=== PATIENT | female | born 1955 | race Caucasian/White ===

== ENCOUNTER 2016-05-10 11:30 | Outpatient (RCR) | payer BC ==
[~2016-05-10 11:30] MED LIST: ASPIR-LOX325 MG PO; CITALOPRAM20 MG PO; LORTAB 5/500 501 TAB PO; MECLIZINE25 MG PO; NEURONTIN300 MG PO; NEURONTIN300 MG/CAP PO; NORCO 325 MG-51 TAB PO; PEPCID 20MG TAB20 MG PO; PROTONIX40 MG PO; TOPROL XL50 MG PO
== END 2016-06-03 12:06 | disposition home or self-care (01) ==
LOC: WSPT 11:30
DX: M54.6 Pain in thoracic spine (principal); M54.5 Low back pain; M40.46 Postural lordosis, lumbar region; M40.294 Other kyphosis, thoracic region

== ENCOUNTER 2017-01-27 10:47 | Observation (INO) | payer BC ==
[~2017-01-27] VITALS: Ht 165.1 cm; Wt 62.8 kg
[2017-01-27 13:28] LABS: ADJUSTED CALCIUM 9.5 mg/dL (8.4-10.2); ALANINE AMINOTRANSFERASE 27 U/L (9-52); ALBUMIN 4.2 gm/dL (3.5-5.0); ALKALINE PHOSPHATASE 125 U/L (50-136); ANION GAP 10 mmol/L (7-16); BILIRUBIN,TOTAL 0.6 mg/dL (0.0-1.0); BLOOD UREA NITROGEN 5 mg/dL (7-17); CALCIUM 9.7 mg/dL (8.4-10.2); CARBON DIOXIDE 27 mmol/L (22-30); CHLORIDE 103 mmol/L (98-107); CREATININE, serum 0.68 mg/dL (0.52-1.25); GLUCOSE 82 mg/dL (74-106); LIPASE 42 U/L (23-300); POTASSIUM 4.2 mmol/L (3.4-5.0); SODIUM 140 mmol/L (137-145); TOTAL PROTEIN 7.8 gm/dL (6.4-8.2)
[2017-01-27 13:36] LABS: B-TYPE NATRIURETIC PEPTIDE 294 pg/mL (0-125)
[2017-01-27 13:45] LABS: TROPONIN-I < 0.012 ng/mL (0.000-0.034)
[2017-01-27 13:51] LABS: PROTHROMBIN TIME 10.9 SECONDS (9.7-12.8)
[2017-01-27 13:52] LABS: BASO % 0.8 % (0.0-2.0); EOS # 0.1 (0.0-0.7); EOS % 1.5 % (0-4.0); GRAN # 2.2 (1.4-6.5); GRAN % 46.9 % (42.2-75.2); HEMATOCRIT 49.1 % (37.0-47.0); LYMPH # 2.1 (1.2-3.4); LYMPH % 43.1 % (20.0-51.0); MEAN CELL VOLUME 96 fl (80.0-100.0); MEAN CORPUSCULAR HEMOGLOBIN 31 pg (27.0-31.0); MEAN CORPUSCULAR HGB CONC 33 g/dl (33.0-37.0); MONO # 0.4 (0.1-0.6); MONO % 7.3 % (1.7-9.3); PLATELET COUNT 270 K/mm3 (130-400); RED BLOOD COUNT 5.14 M/mm3 (4.10-5.30); WHITE BLOOD COUNT 4.8 K/mm3 (4.8-10.8)
[2017-01-27 13:54] LABS: PARTIAL THROMBOPLASTIN TIME 30.9 SECONDS (26.0-37.0)
[2017-01-27] MEDS ORDERED: ASPIRIN 32325 MG/TAB PO (15:40)
[2017-01-27 20:30] VITALS: BP 139/72; PULSE 76; TEMP 97.8
[2017-01-27 23:34] VITALS: BP 129/70; PULSE 84; TEMP 98.1
[2017-01-28] VITALS (13 sets, daily range): BP systolic 105–164; BP diastolic 67–91; PULSE 64–82; TEMP 97.8–98.5
[2017-01-28 08:47] LABS: BASO % 0.8 % (0.0-2.0); EOS # 0.1 (0.0-0.7); EOS % 1.3 % (0-4.0); GRAN # 2.3 (1.4-6.5); GRAN % 43.6 % (42.2-75.2); HEMATOCRIT 48.5 % (37.0-47.0); HEMOGLOBIN 15.8 g/dl (12.5-16.0); LYMPH # 2.5 (1.2-3.4); MEAN CELL VOLUME 95 fl (80.0-100.0); MEAN CORPUSCULAR HEMOGLOBIN 31 pg (27.0-31.0); MEAN CORPUSCULAR HGB CONC 33 g/dl (33.0-37.0); MEAN PLATELET VOLUME 10.2 fl (7.4-10.4); MONO # 0.4 (0.1-0.6); MONO % 8.1 % (1.7-9.3); PLATELET COUNT 258 K/mm3 (130-400); REDCELL DISTRIBUTION WIDTH-CV 12.9 % (11.5-14.5); WHITE BLOOD COUNT 5.3 K/mm3 (4.8-10.8)
[2017-01-28 09:08] LABS: PROTHROMBIN TIME 11.5 SECONDS (9.7-12.8)
[2017-01-28 09:11] LABS: PARTIAL THROMBOPLASTIN TIME 33.7 SECONDS (26.0-37.0)
[2017-01-28 09:23] LABS: ANION GAP 9 mmol/L (7-16); BLOOD UREA NITROGEN 6 mg/dL (7-17); CALCIUM 9.6 mg/dL (8.4-10.2); CARBON DIOXIDE 25 mmol/L (22-30); CHLORIDE 105 mmol/L (98-107); CHOLESTEROL 290 mg/dL (120-200); CREATININE, serum 0.63 mg/dL (0.52-1.25); GLUCOSE 78 mg/dL (74-106); HDL CHOLESTEROL 35 mg/dL; LDL CHOLESTEROL 213 mg/dL; POTASSIUM 3.8 mmol/L (3.4-5.0); SODIUM 139 mmol/L (137-145); TRIGLYCERIDE 211 mg/dL
[2017-01-28 09:32] LABS: TROPONIN-I < 0.012 ng/mL (0.000-0.034)
[2017-01-28 10:32] LABS: MAGNESIUM 2.3 mg/dL (1.6-2.3)
[2017-01-28 11:04] LABS: FERRITIN 60 ng/mL (11-264)
[2017-01-28] MEDS ORDERED: LIPITOR 80MG80 MG PO (15:32)
[2017-01-28] MEDS ORDERED: TOPROL XL 50MG50 MG PO (15:33)
[2017-01-28] MEDS ORDERED: CELEXA 20MG20 MG/TAB PO (15:35)
[2017-01-28] MEDS ORDERED: ASPIRIN 32325 MG/TAB PO (15:35)
[2017-01-29 14:07] LABS: ALBUMIN FRACTION 3.7 g/dL (2.6-4.5); ALBUMIN PERCENTAGE 55.2 % (48.7-61.8); ALPHA 1 FRACTION 0.3 g/dL (0.3-0.5); ALPHA 1 PERCENTAGE 4.7 % (3.4-8.3); ALPHA 2 FRACTION 0.9 g/dL (0.6-1.2); BETA 1 FRACTION 0.5 g/dL (0.4-0.6); BETA 2 FRACTION 0.5 g/dL (0.2-0.5); BETA 2 PERCENTAGE 6.8 % (3.8-7.7); GAMMA FRACTION 0.8 g/dL (0.4-1.7); GAMMA PERCENTAGE 12.3 % (8.1-23.0); SERUM PROTEIN TOTAL 6.7 g/dL (6.0-7.6)
== END 2017-01-28 16:26 | disposition home or self-care (01) ==
LOC: COL.ER 10:47 → MEDICAL 14:29
PROVIDERS: Emergency Medicine; Internal Medicine Interventional Cardiology; Psychiatry & Neurology Neurology
DX: I25.110 Atherosclerotic heart disease of native coronary artery with unstable angina pectoris (principal); R07.9 Chest pain, unspecified; E78.5 Hyperlipidemia, unspecified; I10 Essential (primary) hypertension; J44.9 Chronic obstructive pulmonary disease, unspecified; M48.02 Spinal stenosis, cervical region; R01.1 Cardiac murmur, unspecified; G95.9 Disease of spinal cord, unspecified; G62.9 Polyneuropathy, unspecified; Z87.891 Personal history of nicotine dependence; M51.24 Other intervertebral disc displacement, thoracic region; Z90.710 Acquired absence of both cervix and uterus
CPT/HCPCS: A9585; C1760; C1894; G0378; J1650; J2250; J3010; Q9967

== ENCOUNTER → 2017-03-17 | Outpatient (CLI) | payer BC ==
[~2017-03-17] MED LIST changes: +ASPIRIN 32325 MG/TAB PO; +CELEXA 20MG20 MG/TAB PO; +LIPITOR 80MG80 MG PO; +TOPROL XL 50MG50 MG PO
== END ==
LOC: COL.RAD 07:48
DX: I71.4 Abdominal aortic aneurysm, without rupture (principal); I21.9 Acute myocardial infarction, unspecified; I70.0 Atherosclerosis of aorta; J43.9 Emphysema, unspecified
CPT/HCPCS: A9537; J7050; Q9967

== ENCOUNTER → 2017-12-08 | Outpatient (CLI) | payer BC | LOC: COL.RAD 07:30 | DX: I70.213 Atherosclerosis of native arteries of extremities with intermittent claudication, bilateral legs (principal); I71.4 Abdominal aortic aneurysm, without rupture; I70.0 Atherosclerosis of aorta; I77.4 Celiac artery compression syndrome; K55.1 Chronic vascular disorders of intestine; M48.02 Spinal stenosis, cervical region; M54.12 Radiculopathy, cervical region; Z95.828 Presence of other vascular implants and grafts; Z98.1 Arthrodesis status | CPT/HCPCS: A9585; Q9967 ==

== ENCOUNTER → 2018-05-19 | Outpatient (CLI) | payer BC | LOC: MC.RAD 15:09 | DX: Z12.31 Encounter for screening mammogram for malignant neoplasm of breast (principal) ==

== ENCOUNTER 2018-06-18 18:55 | Emergency (ER) | payer BC ==
[~2018-06-18] VITALS: Ht 160 cm; Wt 64.5 kg
[2018-06-18 18:55] VITALS: TEMP 97.8
[2018-06-18] MEDS ORDERED: ASPIRIN 81M81 MG/TA2 PO (19:06)
[2018-06-18] MEDS ORDERED: PLAVIX 75MG TAB75 MG PO (19:14)
[2018-06-18] MEDS ORDERED: ISOCHRON40 MG PO (19:14)
[2018-06-18] MEDS ORDERED: CYMBALTA 20MG20 MG PO (19:15)
[2018-06-18] MEDS ORDERED: CRESTOR20 MG PO (19:15)
[2018-06-18] MEDS ORDERED: NORCO 325 MG-51 TAB PO (20:03)
[2018-06-18 20:49] VITALS: BP 119/86; PULSE 96
== END 2018-06-18 20:49 | disposition home or self-care (01) ==
LOC: COL.ER 18:55
DX: M54.12 Radiculopathy, cervical region (principal); Z79.82 Long term (current) use of aspirin
CPT/HCPCS: J1100; J1200; J2405; J3010

== ENCOUNTER → 2018-07-07 | Outpatient (CLI) | payer BC ==
[~2018-07-07] MED LIST changes: +ASPIRIN 81M81 MG/TA2 PO; +CARDIZEM120 MG PO; +CRESTOR20 MG PO; +CYMBALTA 20MG20 MG PO; +ISOCHRON40 MG PO; +NORVASC 5MG5 MG/TAB PO; +PLAVIX 75MG TAB75 MG PO; +TYLENOL 325MG325 MG PO; +TYLENOL 500MG500 MG PO
== END ==
LOC: COL.RAD 11:12
DX: I77.1 Stricture of artery (principal); I65.21 Occlusion and stenosis of right carotid artery; J43.9 Emphysema, unspecified; Z98.890 Other specified postprocedural states
CPT/HCPCS: Q9967

== ENCOUNTER 2018-07-08 12:21 | Day surgery (SDC) | payer BC ==
[2018-07-08] VITALS (13 sets, daily range): BP systolic 95–139; BP diastolic 65–92; PULSE 93–122; TEMP 97.6–98.2
[~2018-07-08] VITALS: Ht 162.6 cm; Wt 65.0 kg
[~2018-07-08 12:21] MED LIST changes: -CARDIZEM120 MG PO; -NORVASC 5MG5 MG/TAB PO; -TYLENOL 325MG325 MG PO; -TYLENOL 500MG500 MG PO
[2018-07-08 13:09] LABS: HEMATOCRIT 46.6 % (37.0-47.0); HEMOGLOBIN 15.7 g/dl (12.5-16.0); MEAN CELL VOLUME 98 fl (80.0-100.0); MEAN CORPUSCULAR HEMOGLOBIN 33 pg (27.0-31.0); MEAN CORPUSCULAR HGB CONC 34 g/dl (33.0-37.0); MEAN PLATELET VOLUME 9.4 fl (7.4-10.4); PLATELET COUNT 277 K/mm3 (130-400); RED BLOOD COUNT 4.74 M/mm3 (4.10-5.30); REDCELL DISTRIBUTION WIDTH-CV 12.9 % (11.5-14.5)
[2018-07-08 13:11] LABS: PROTHROMBIN TIME 11.6 SECONDS (9.7-12.8)
[2018-07-08 13:22] LABS: CALCIUM 9.7 mg/dL (8.4-10.2); CREATININE, serum 0.76 mg/dL (0.52-1.25)
[2018-07-08] MEDS ORDERED: CARDIZEM120 MG PO (13:28)
[2018-07-08] MEDS ORDERED: NORVASC 5MG5 MG/TAB PO (13:29)
[2018-07-08] MEDS ORDERED: TYLENOL 500MG500 MG PO (13:30)
--- NOTE | 2018-07-08 14:02 | NUR ---
ALL SEDATION MEDICATIONS GIVEN WITH VERBAL ORDER FROM MD TAMEZ. SEE MERGE FOR ADMIN TIMES. SEE MERGE FOR RASS AND MODERATE SEDATION ASSSESSMENTS DURING AND POST PROCEDURE.
--- NOTE | 2018-07-08 16:00 | NUR ---
PT TO EU 10 VIA BED FROM PHYSICAL THER. PT IS AWAKE AND ALERT, HER, BEDSIDE REPORT, EKG DONE ORDERED. ANCEF IV INFUSED. PT HAS TB ON RIGHT WRIST, 15CC AIR, SITE WNL, DOPPLER FOR ALL PULSES, PT HAS DRESSING OVER RIGHT GROIN CLEAN AND DRY, HAS DRESSING OVER INSERTION SITE LEFT GROIN CLEAN AND DRY. TAKES SIPS OF WATER.
--- NOTE | 2018-07-08 16:45 | NUR ---
REPORT GIVEN TO JAEL CLARK ON 3RD FLOOR FOR [facility] 352, PT CON'T SAME, NO C/O.
--- NOTE | 2018-07-08 17:30 | NUR ---
pt transferred to room bed via sliding board, tele applied, sites checked after transfer no changes, to room 352, report to Lana CLARK
--- NOTE | 2018-07-08 17:57 | NUR ---
PT IN BED WITH HOB FLAT AT THIS TIME. PT HAS LEFT AND RIGHT GROIN AREA THAT IS SOFT AND GAUZE DRSGs ARE C/D/I. PT DENIES PAIN IN THOSE AREAS AT THIST TIME. PT HAS RIGHT RADIAL TR BAND, AREA SOFT AND NO HEMATOMA. PT A/O X4, AND AWARE THAT SHE HAS TO LAY FLAT FOR 4 HOURS.
[2018-07-08] MEDS ORDERED: TYLENOL 325MG325 MG PO (18:05)
--- NOTE | 2018-07-08 18:10 | NUR ---
2CC OF AIR TAKEN OUT OF TR BAND.
--- NOTE | 2018-07-08 18:18 | NUR ---
HAD TRIED TO TAKE OUT 3CC OF AIR MORE FROM RIGHT RADIAL AREA STARTED TO BLEED. PUT 5CC OF AIR BACK INTO TR BAND. PT STILL HAS 15CC OF AIR IN TR BAND. PT IS A/O X4, HAS PAIN RATED AT 5/10 IN RIGHT ARM AND DISCRIBED SHARP. CALL LIGHT WITHIN REACH.
--- NOTE | 2018-07-08 21:10 | NUR ---
PT resting in bed A+Ox4. pt reports pain at a 4/10- in right wrist. pt laying flat in bed. right wrist has a air compression band on, no bleeding noted. bilateral femoral dressings DCI. no needs at this time. call light in reach
--- NOTE | 2018-07-08 23:09 | NUR ---
pt reports righ wrist pain feeling better haver tylonol given. pt resting now. dressings DCI bilateral femoral region. no bleeding noted at right wrist site. air compression band on with 15 cc of air. no needs at this time. call light in reach.
[2018-07-09 00:22] VITALS: BP 114/79; PULSE 99
[2018-07-09 00:23] VITALS: BP 114/79; PULSE 99; TEMP 98.1
--- NOTE | 2018-07-09 01:17 | NUR ---
released another 3 cc out of right radial compression band. 9cc remaining in band. no bleeding or hematoma noted. no needs at this time. call light in reach
[2018-07-09 03:55] VITALS: BP 117/75; PULSE 101; TEMP 98.1
--- NOTE | 2018-07-09 04:00 | NUR ---
released another 5cc out of air band. now total is at 4cc. will continue to monitor. no needs at this time. call light in reach
--- NOTE | 2018-07-09 06:05 | NUR ---
pt had slight swelling in RUE. reports no pain. air compression band is off. no bleeding noted. no needs at this time, call light in reach
[2018-07-09 06:28] LABS: BASO % 0.6 % (0.0-2.0); EOS % 0.5 % (0-4.0); GRAN # 3.3 (1.4-6.5); GRAN % 51.6 % (42.2-75.2); HEMATOCRIT 44.6 % (37.0-47.0); HEMOGLOBIN 14.9 g/dl (12.5-16.0); LYMPH # 2.5 (1.2-3.4); LYMPH % 38.7 % (20.0-51.0); MEAN CELL VOLUME 99 fl (80.0-100.0); MEAN CORPUSCULAR HEMOGLOBIN 33 pg (27.0-31.0); MEAN CORPUSCULAR HGB CONC 33 g/dl (33.0-37.0); MEAN PLATELET VOLUME 9.6 fl (7.4-10.4); MONO # 0.5 (0.1-0.6); MONO % 8.3 % (1.7-9.3); PLATELET COUNT 294 K/mm3 (130-400); RED BLOOD COUNT 4.53 M/mm3 (4.10-5.30); REDCELL DISTRIBUTION WIDTH-CV 13.1 % (11.5-14.5)
[2018-07-09 06:42] LABS: CALCIUM 9.7 mg/dL (8.4-10.2); CREATININE, serum 0.78 mg/dL (0.52-1.25); POTASSIUM 4.2 mmol/L (3.4-5.0)
--- NOTE | 2018-07-09 07:28 | NUR ---
report given to EDUARDO Velez. pt reports no needs
[2018-07-09 07:32] VITALS: BP 103/71; PULSE 111; TEMP 98.1
--- NOTE | 2018-07-09 08:00 | NUR ---
Pt AAOx4, denies chest pain. "Ready to go home". Discharge education provided. All questions answered
--- NOTE | 2018-07-09 14:46 | NUR ---
SW unable to meet with patient before discharge.
== END 2018-07-09 10:28 | disposition home or self-care (01) ==
LOC: COL.CAR 12:21 → MEDICAL 17:54 → COL.CAR 07-09 10:28
PROVIDERS: Internal Medicine Cardiovascular Disease
DX: I25.118 Atherosclerotic heart disease of native coronary artery with other forms of angina pectoris (principal); I65.22 Occlusion and stenosis of left carotid artery; I70.213 Atherosclerosis of native arteries of extremities with intermittent claudication, bilateral legs; I71.4 Abdominal aortic aneurysm, without rupture; I65.29 Occlusion and stenosis of unspecified carotid artery; M25.519 Pain in unspecified shoulder; I73.89 Other specified peripheral vascular diseases; J44.9 Chronic obstructive pulmonary disease, unspecified; I70.1 Atherosclerosis of renal artery; I10 Essential (primary) hypertension; M48.00 Spinal stenosis, site unspecified; Z79.899 Other long term (current) drug therapy; Z95.820 Peripheral vascular angioplasty status with implants and grafts; Z79.02 Long term (current) use of antithrombotics/antiplatelets; Z79.82 Long term (current) use of aspirin
CPT/HCPCS: OP; C1769; C1887; C1894; J0690; J1644; J2250; J3010; Q9967

== ENCOUNTER → 2018-07-27 | Outpatient (CLI) | payer BC ==
[~2018-07-27] MED LIST changes: +CARDIZEM120 MG PO; +NORVASC 5MG5 MG/TAB PO; +TYLENOL 325MG325 MG PO; +TYLENOL 500MG500 MG PO
== END ==
LOC: MHCPAIN 08:54
DX: G89.29 Other chronic pain (principal); M54.12 Radiculopathy, cervical region; M47.812 Spondylosis without myelopathy or radiculopathy, cervical region; M96.1 Postlaminectomy syndrome, not elsewhere classified
CPT/HCPCS: G0463

== ENCOUNTER → 2019-06-01 | Outpatient (CLI) | payer MEDICARE, BC ==
[2019-06-02 10:38] LABS: FACTOR V LEIDEN MUTATION B Negative (Negative)
[2019-06-03 12:25] LABS: LUPUS ANTICOAGULANT PT 12.6 Seconds (())
== END ==
LOC: COL.LAB 09:41
PROVIDERS: Internal Medicine Interventional Cardiology
DX: D68.2 Hereditary deficiency of other clotting factors (principal); I10 Essential (primary) hypertension; E55.9 Vitamin D deficiency, unspecified; I25.10 Atherosclerotic heart disease of native coronary artery without angina pectoris

== ENCOUNTER 2022-02-27 10:55 | Inpatient (IN) | payer MEDICARE, BC ==
[~2022-02-27] VITALS: Ht 162.6 cm; Wt 58.4 kg
[2022-02-27 11:44] LABS: BASO # 0.1 K/mm3 (0.0-0.2); BASO % 0.7 % (0.0-2.0); EOS # 0.1 K/mm3 (0.0-0.7); EOS % 0.7 % (0.0-4.0); GRAN # 5.4 K/mm3 (1.4-6.5); GRAN % 57.3 % (42.2-75.2); HEMATOCRIT 50.6 % (37.0-47.0); HEMOGLOBIN 16.9 g/dl (12.5-16.0); LYMPH % 31.6 % (20.0-51.0); MEAN CELL VOLUME 95 fl (80.0-100.0); MEAN CORPUSCULAR HEMOGLOBIN 32 pg (27-31); MEAN CORPUSCULAR HGB CONC 33 g/dl (33.0-37.0); MONO # 0.9 K/mm3 (0.1-0.6); MONO % 9.4 % (1.7-9.3); PLATELET COUNT 216 K/mm3 (130-400); RED BLOOD COUNT 5.35 M/mm3 (4.10-5.30); REDCELL DISTRIBUTION WIDTH-CV 12.8 % (11.5-14.5)
[2022-02-27 12:03] LABS: ALANINE AMINOTRANSFERASE 32 U/L (0-55); ALBUMIN 4.1 gm/dL (3.4-4.8); ALKALINE PHOSPHATASE 117 U/L (40-150); ANION GAP 12 mmol/L (7-16); AST,SGOT 31 U/L (5-34); BILIRUBIN,TOTAL 0.3 mg/dL (0.2-1.2); BLOOD UREA NITROGEN 7 mg/dL (10-20); CALCIUM 9.8 mg/dL (8.4-10.2); CARBON DIOXIDE 25 mmol/L (23-31); CHLORIDE 104 mmol/L (98-107); CREATININE, serum 0.98 mg/dL (0.57-1.11); GLUCOSE 102 mg/dL (70-99); POTASSIUM 3.4 mmol/L (3.5-4.5); SODIUM 141 mmol/L (136-145); TOTAL PROTEIN 8.4 gm/dL (6.2-8.1)
[2022-02-27] MEDS ORDERED: PRINIVIL5 MG (12:09)
[2022-02-27 12:11] LABS: TROPONIN-I < 0.010 ng/mL (0.00-0.033)
[2022-02-27 14:09] VITALS: BP 113/94; PULSE 92; TEMP 98
--- NOTE | 2022-02-27 14:11 | NUR ---
PATIENT ARRIVED AWAKE AND ALERT, VITAL SIGNS STABLE. STEADY GAIT WITH NO ASSITIVE DEVICE. PATIENT SITTING IN RELCINER. CALL [facility] WITHIN REACH.
--- NOTE | 2022-02-27 15:45 | NUR ---
PATIENT STATED HER WILL BRING IN HER MED LIST SO THAT THIS RN CAN VERIFY HER MED REC.
[2022-02-27] MEDS ORDERED: TOPROL XL 25MG25 MG PO (17:32)
--- NOTE | 2022-02-27 18:32 | NUR ---
PATIENT ALERT AND AWAKE, SITTING IN RECLINEER. IN ROOM. CALL LIGHT WITHIN REACH.
[2022-02-27 21:38] VITALS: BP 94/59; PULSE 97; TEMP 97.8
--- NOTE | 2022-02-27 21:47 | NUR ---
Patient assessed around 1950. Alert and oriented x 4, and able to make needs known. Denies having pain and discomfort at this time. Peripheral INT to right forearm. Patient aware of plan for lexiscan in the morning, and that she is NPO after midnight, including water. Given sandwich box as requested. Voices no further questions, needs, or concerns at this time. In recliner with call light within reach.
[2022-02-27 23:46] VITALS: BP 106/78; PULSE 84; TEMP 98.3
[2022-02-28] VITALS (158 sets, daily range): BP systolic 82–155; BP diastolic 46–85; PULSE 83–115; TEMP 97.4–98.5; O2SAT 89–98
--- NOTE | 2022-02-28 06:09 | NUR ---
Patient denies having pain and discomfort. On IV fluids per orders. Has been NPO since midnight except for taking medications with sips of water. Voices no questions, needs, or concerns at this time. In bed with call light within reach.
[2022-02-28 06:28] LABS: BASO % 0.7 % (0.0-2.0); EOS # 0.1 K/mm3 (0.0-0.7); EOS % 1.3 % (0.0-4.0); GRAN # 2.9 K/mm3 (1.4-6.5); GRAN % 46.5 % (42.2-75.2); HEMATOCRIT 43.9 % (37.0-47.0); LYMPH # 2.6 K/mm3 (1.2-3.4); LYMPH % 43.1 % (20.0-51.0); MEAN CELL VOLUME 96 fl (80.0-100.0); MEAN CORPUSCULAR HEMOGLOBIN 31 pg (27-31); MEAN CORPUSCULAR HGB CONC 33 g/dl (33.0-37.0); MEAN PLATELET VOLUME 9.9 fl (7.4-10.4); MONO # 0.5 K/mm3 (0.1-0.6); MONO % 8.2 % (1.7-9.3); PLATELET COUNT 178 K/mm3 (130-400); RED BLOOD COUNT 4.58 M/mm3 (4.10-5.30); REDCELL DISTRIBUTION WIDTH-CV 12.9 % (11.5-14.5)
[2022-02-28 06:31] LABS: HEMOGLOBIN 14.3 g/dl (12.5-16.0)
[2022-02-28 06:42] LABS: PROTHROMBIN TIME 11.7 SECONDS (9.7-12.8)
[2022-02-28 06:53] LABS: TROPONIN-I < 0.010 ng/mL (0.00-0.033)
[2022-02-28 07:00] LABS: ANION GAP 6 mmol/L (7-16); BLOOD UREA NITROGEN 9 mg/dL (10-20); CARBON DIOXIDE 26 mmol/L (23-31); CHLORIDE 107 mmol/L (98-107); CHOLESTEROL 117 mg/dL (0-199); CHOLESTEROL RISK RATIO 2.7; GLUCOSE 75 mg/dL (70-99); HDL CHOLESTEROL 42 mg/dL (40-60); LDL CHOLESTEROL 58 mg/dL; MAGNESIUM 2.1 mg/dL (1.6-2.6); POTASSIUM 4.1 mmol/L (3.5-4.5); SODIUM 139 mmol/L (136-145); TRIGLYCERIDE 84 mg/dL (0-149)
--- NOTE | 2022-02-28 08:22 | NUR ---
PT ALERT AND ORIENTED WITH VITALS STABLE EXCEPT FOR BP ON ROOM AIR. PHYSICIAN AWARE OF LOW BP, FLUID BOLUS RUNNING. PT REPORTS HEADACHE. CALL LIGHT WITHIN REACH. NO FURTHER NEEDS AT THE MOMENT.
[2022-02-28 12:21] LABS: PARTIAL THROMBOPLASTIN TIME 32.3 SECONDS (26.0-37.0)
--- NOTE | 2022-02-28 13:42 | NUR ---
PT BROUGHT TO ICU VIA W/C BY RN AND THO. PT IS ALERT AND ORIENTED, VSS, DENIES ANY PAIN. IV TO R FOREARM IS INFILTRATED, NEW 20G IV INSERTED TO L FOREARM, FLUIDS AND HEPARIN DRIP INITIATED ORDERED. PT RESTING IN BED AT THIS TIME, INSTRUCTED TO USE CALL LIGHT FOR NEEDS.
--- NOTE | 2022-02-28 16:06 | NUR ---
PT TRANSFERED TO [facility] VIA EMS AT 1555. VSS. NS RUNNING AT 150ML/HR AND HEPARIN AT 7ML/HR TO PERIPHERAL IV IN L FOREARM. PT HAS DENIED ANY PAIN SINCE BEING ADMITTED TO ICU. PT BELONGING BAG AND GLASSES SENT W/ PT. PT'S NOTIFIED OF ROOM NUMBER BY PHONE. REPORT CALLED TO EDUARDO BRIDGES AT [id number].
== END 2022-02-28 15:55 | disposition short-term general hospital (02) | DRG 311 ==
LOC: COL.ER 10:55 → MEDICAL 12:36 → ICU 02-28 11:36
PROVIDERS: Emergency Medicine; ADMIT Internal Medicine
DX: I24.9 Acute ischemic heart disease, unspecified (principal); I10 Essential (primary) hypertension; E78.5 Hyperlipidemia, unspecified; I71.40 Abdominal aortic aneurysm, without rupture, unspecified; I73.9 Peripheral vascular disease, unspecified; I25.10 Atherosclerotic heart disease of native coronary artery without angina pectoris; I08.3 Combined rheumatic disorders of mitral, aortic and tricuspid valves; G43.909 Migraine, unspecified, not intractable, without status migrainosus; I95.9 Hypotension, unspecified; Z79.01 Long term (current) use of anticoagulants; Z79.82 Long term (current) use of aspirin; Z88.2 Allergy status to sulfonamides; Z86.73 Personal history of transient ischemic attack (TIA), and cerebral infarction without residual deficits; Z90.710 Acquired absence of both cervix and uterus; Z87.891 Personal history of nicotine dependence; Z23 Encounter for immunization
CPT/HCPCS: OP; A9500; G0378; J1644; J2785; J3010; J7030; Q9967